=== PATIENT | male | born 1975 | race Caucasian/White ===

== ENCOUNTER → 2017-03-23 | Day surgery (SDC) | payer OTHER, SELFPAY ==
[~2017-03-23] VITALS: Ht 182.9 cm; Wt 95.0 kg
[2017-03-23 09:20] LABS: HCT 43.6 % (42.0-52.0); HGB 15.3 g/dl (13.2-18.0); MCH 32.1 pg (25.0-31.0); MCHC 35.1 g/dL (32.0-36.0); MCV 91.6 fL (78.0-100.0); MPV 9.6 fL (6.0-9.5); RBC 4.76 M/uL (4.70-6.00); RDW 13.7 % (11.5-14.0)
[2017-03-23 09:40] LABS: ALBUMIN 4.1 g/dL (3.5-5.0); BILIRUBIN - TOTAL 0.3 mg/dL (0.1-1.0); CREATININE 1.1 mg/dL (0.7-1.2); GLOBULIN (CALCULATION) 2.7 g/dL (2.2-4.2); TOTAL PROTEIN 6.8 g/dL (6.4-8.3)
[2017-03-23 09:55] LABS: POTASSIUM 4.3 mmol/L (3.5-5.1)
== END | disposition home or self-care (01) ==
LOC: FAS 08:37
PROVIDERS: Surgery
DX: K42.9 Umbilical hernia without obstruction or gangrene (principal); L72.9 Follicular cyst of the skin and subcutaneous tissue, unspecified; F17.210 Nicotine dependence, cigarettes, uncomplicated; Z81.1 Family history of alcohol abuse and dependence
CPT/HCPCS: 36415; 80053; 88302; 88304; 88305; 88341; 88342; J1170; J1885; J2704; J2710; J3010

== ENCOUNTER 2021-05-05 23:37 | Emergency (ER) | payer OTHER ==
[~2021-05-05 23:37] MED LIST: HYDROCODON-ACE1 EAC4 PO; IBUPROFEN800 MG PO
[2021-05-06 00:11] LABS: BASOPHIL 0.5 % (0-2); EOSINOPHIL 2.4 % (0-5); HCT 44.8 % (42.0-52.0); HGB 15.2 g/dl (13.2-18.0); LYMPHOCYTE 18.6 % (15-48); MCHC 33.9 g/dL (32.0-36.0); MCV 91.2 fL (78.0-100.0); MPV 9.2 fL (6.0-9.5); NEUTROPHIL 71.2 % (41-80); NRBC 0; PLT 374 K/uL (150-400); RBC 4.91 M/uL (4.70-6.00); WBC 13.2 K/uL (4.0-10.5)
[2021-05-06 00:21] LABS: INR 1.01 (0.9-1.2); PROTHROMBIN TIME 12.7 SECONDS (11.8-13.4)
[2021-05-06 00:39] LABS: ALKALINE PHOSHATASE 115 U/L (46-116); ALT 38 U/L (16-63); AST 28 U/L (15-37); BILIRUBIN - TOTAL 0.3 mg/dL (0.2-1.0); BUN 13 mg/dL (7-18); BUN/CREAT RATIO (CALC) 12.3 RATIO; CHLORIDE 104 mmol/L (98-107); CO2 (BICARBONATE) 29 mmol/L (21-32); CREATININE 1.06 mg/dL (0.67-1.17); GLUCOSE 112 mg/dL (74-106); POTASSIUM 3.5 mmol/L (3.5-5.1)
[2021-05-06 00:57] LABS: LACTIC ACID 0.9 mmol/L (0.4-1.9)
== END 2021-05-06 03:24 | disposition home or self-care (01) ==
LOC: FER 23:37
PROVIDERS: Emergency Medicine
DX: S01.81XA Laceration without foreign body of other part of head, initial encounter (principal); F19.10 Other psychoactive substance abuse, uncomplicated; I10 Essential (primary) hypertension; Z88.5 Allergy status to narcotic agent; F17.200 Nicotine dependence, unspecified, uncomplicated; Y35.93XA Legal intervention, means unspecified, suspect injured, initial encounter
CPT/HCPCS: 36415; 70450; 71045; 72125; 80053; 83605; 85025; 85610; 87040; G0480; J7030